=== PATIENT | female | born 1965 | race Asian ===

== ENCOUNTER 2025-06-13 08:40 | Outpatient (CLI) | payer BC | END 2025-06-13 08:41 | disposition home or self-care (01) | LOC: CSHMAMMO 08:40 | PROVIDERS: ATTEND Internal Medicine | DX: Z12.31 Encounter for screening mammogram for malignant neoplasm of breast (principal); Z80.3 Family history of malignant neoplasm of breast; Z85.43 Personal history of malignant neoplasm of ovary | CPT/HCPCS: 77063; 77067 ==